=== PATIENT | male | born 1945 | race African-American/Black ===

== ENCOUNTER 2020-09-19 08:28 | Emergency (ER) | payer OTHER ==
[2020-09-19 08:58] VITALS: BP 125/72; PULSE 84; TEMP 98.4; BMI 26.1
== END 2020-09-19 14:15 | disposition home or self-care (01) ==
LOC: JERFT 08:28 → JER 08:28 → JERFT 14:15
DX: H66.91 Otitis media, unspecified, right ear (principal)
CPT/HCPCS: 99282-25

== ENCOUNTER → 2020-09-23 | Emergency (ER) | payer OTHER ==
[2020-09-23 03:47] VITALS: BMI 23.4
[2020-09-23 04:22] LABS: BASO % 1.2 % (0-2.0); HEMATOCRIT 39.7 % (35.4-49); LYMPH % 27.4 % (8-40); MCH 32.2 pg (25.7-33.7); MCHC 32.7 g/dl (32.0-35.9); MEAN CELL VOLUME 98.4 fl (80-96); NEUT % 58.4 % (42.8-82.8); PLATELET COUNT 280 K/MM3 (134-434); RBC 4.03 M/mm3 (4.00-5.60); RDW 15.1 % (11.9-15.9); WHITE BLOOD COUNT 9.4 K/mm3 (4.0-10.0)
[2020-09-23 05:03] LABS: CALCIUM 9.1 mg/dL (8.5-10.1); POTASSIUM 5.1 mmol/L (3.5-5.1)
[2020-09-23 05:04] LABS: ALBUMIN 3.4 g/dl (3.4-5.0); BLOOD UREA NITROGEN 29.6 mg/dL (7-18)
[2020-09-23 05:08] LABS: CREATININE 1.7 mg/dL (0.55-1.3)
[2020-09-23 05:09] LABS: BILIRUBIN,TOTAL 0.6 mg/dL (0.2-1); TOT PROT 8.6 g/dl (6.4-8.2)
[2020-09-23 06:18] VITALS: BP 145/94; PULSE 93; TEMP 97.8
== END | disposition home or self-care (01) ==
LOC: JER 03:37
DX: R56.9 Unspecified convulsions (principal)
CPT/HCPCS: 36415; 70450-TC; 72125-TC; 80053; 85025; 99284-25

== ENCOUNTER 2021-01-24 10:02 | Inpatient (IN) | payer OTHER ==
[2021-01-24] MEDS ORDERED: ACETAMINOPHEN 1000 MG/100 ML VIAL (NON FORMULARY) IVPB ONE (10:36)
[2021-01-24] MEDS ORDERED: CEFTRIAXONE 1 GM in DEXTROSE 5%-WATER - 100 ML IVPB ONE (10:36)
[2021-01-24] MEDS ORDERED: AZITHROMYCIN IVPB 500 MG in DEXTROSE 5%-WATER - 250 ML IVPB ONE (10:36)
[2021-01-24] MEDS ORDERED: ACETAMINOPHEN INJECTION 100 ML IVPB ONE (11:03)
[2021-01-24] MEDS ORDERED: CEFTRIAXONE 1 GM/50 ML BAG ONE (11:03)
[2021-01-24] MEDS ORDERED: AZITHROMYCIN IVPB 500 MG/250 ML BAG IVPB ONE (11:03)
[2021-01-24] MEDS ORDERED: LACTATED RINGERS SOLUTION 1000 ML INFUS.BAG IV ONE (11:09)
[2021-01-24 11:19] LABS: VENOUS BASE EXCESS -0.4 mmol/L (-2-2); VENOUS PCO2 47.5 mmHg (38-52); VENOUS PH 7.351 (7.310-7.410)
[2021-01-24 11:22] LABS: BASO % 0.3 % (0-2.0); EOS % 0.6 % (0-4.5); HEMATOCRIT 39.9 % (35.4-49); HEMOGLOBIN 13.4 GM/dL (11.7-16.9); LYMPH % 9.2 % (8-40); MCH 31.9 pg (25.7-33.7); MCHC 33.5 g/dl (32.0-35.9); MEAN PLT VOLUME 9.6 fl (7.5-11.1); MONO % 9.4 % (3.8-10.2); NEUT % 80.5 % (42.8-82.8); PLATELET COUNT 162 10^3/uL (134-434); RDW 14.4 % (11.9-15.9); WHITE BLOOD COUNT 12.9 K/mm3 (4.0-10.0)
[2021-01-24 11:28] LABS: INR 2.08 (0.83-1.09); PROTHROMBIN TIME (PATIENT) 25.1 SEC (9.7-13.0)
[2021-01-24 11:42] LABS: CHLORIDE 107 mmol/L (98-107); SODIUM 140 mmol/L (136-145)
[2021-01-24 11:45] LABS: CALCIUM 8.4 mg/dL (8.5-10.1)
[2021-01-24 11:46] LABS: ALBUMIN 3.7 g/dl (3.4-5.0); ANION GAP 8 MMOL/L (8-16); BLOOD UREA NITROGEN 26.3 mg/dL (7-18); CO2 25 mmol/L (21-32); GLUCOSE,RANDOM 96 mg/dL (74-106); MAGNESIUM 1.7 mg/dL (1.8-2.4)
[2021-01-24 11:49] LABS: CREATININE 2.1 mg/dL (0.55-1.3); SGOT/AST 18 U/L (15-37); SGPT/ALT 22 U/L (13-61)
[2021-01-24 11:50] LABS: BILIRUBIN,TOTAL 0.8 mg/dL (0.2-1); TOT PROT 8.6 g/dl (6.4-8.2)
[2021-01-24 11:51] LABS: ALK PHOS 94 U/L (45-117)
[2021-01-24 11:54] LABS: N-TERMINAL BNP 4908.1 pg/ml (5-450)
[2021-01-24 15:15] LABS: CHOLESTEROL 101 mg/dL (50-200); TRIGLYCERIDES 48 mg/dL (0-150)
[2021-01-24 15:16] LABS: LDL CHOLESTEROL (ONLY SJRH) 48 mg/dL (5-100)
[2021-01-24 15:18] LABS: HDL CHOLESTEROL 46 mg/dL (40-60)
[2021-01-24] MEDS ORDERED: METOPROLOL TARTRATE 25 MG TABLET (FP) PO SCH (15:45)
[2021-01-24] MEDS ORDERED: SODIUM CHLORIDE 1,000 ML IV SCH (16:00)
[2021-01-24] MEDS ORDERED: PNEUMOC 13-VAL CONJ-DIP CRM/PF 0.5 ML DISP.SYRIN IM ONE (18:51)
[2021-01-24] MEDS: hydrALAZINE HCL 25 MG TABLET (FP) PO SCH (19:02)
[2021-01-24] MEDS: APIXABAN 5 MG TABLET PO SCH (22:13)
[2021-01-24] MEDS: ATORVASTATIN CA 40 MG TABLET (FP) PO SCH (22:13)
[2021-01-25] MEDS: hydrALAZINE HCL 25 MG TABLET (FP) PO SCH ×4 (01:09→21:47)
[2021-01-25] MEDS ORDERED: ACETAMINOPHEN 325 MG TABLET (FP) PO PRN (07:59)
[2021-01-25 08:09] LABS: BASO % 0.2 % (0-2.0); EOS % 1.4 % (0-4.5); LYMPH % 15.3 % (8-40); MCH 32.1 pg (25.7-33.7); MCHC 34.2 g/dl (32.0-35.9); MEAN CELL VOLUME 93.9 fl (80-96); MONO % 10.9 % (3.8-10.2); NEUT % 72.2 % (42.8-82.8); PLATELET COUNT 146 10^3/uL (134-434); RBC 4.05 M/mm3 (4.00-5.60); RDW 14.4 % (11.9-15.9); WHITE BLOOD COUNT 9.3 K/mm3 (4.0-10.0)
[2021-01-25 08:22] LABS: CALCIUM 7.9 mg/dL (8.5-10.1)
[2021-01-25 08:23] LABS: ALBUMIN 3.3 g/dl (3.4-5.0); BLOOD UREA NITROGEN 26.2 mg/dL (7-18); MAGNESIUM 1.6 mg/dL (1.8-2.4)
[2021-01-25 08:26] LABS: CREATININE 1.7 mg/dL (0.55-1.3)
[2021-01-25 08:27] LABS: BILIRUBIN,TOTAL 1.1 mg/dL (0.2-1)
[2021-01-25 08:28] LABS: TOT PROT 7.6 g/dl (6.4-8.2)
[2021-01-25] MEDS ORDERED: DEXTROSE 5%-WATER - 50 ML IVPB ONE (09:39)
[2021-01-25] MEDS ORDERED: cefTRIAXone SODIUM 1 GM VIAL ONE (09:39)
[2021-01-25] MEDS ORDERED: LISINOPRIL 10 MG TABLET PO SCH (10:00)
[2021-01-25] MEDS: THIAMINE HCL 100 MG TABLET (FP) PO SCH (10:07)
[2021-01-25] MEDS: MAGNESIUM OXIDE 400 MG TABLET (FP) PO SCH (10:07)
[2021-01-25] MEDS: PANTOPRAZOLE 40 MG TABLET PO SCH (10:07)
[2021-01-25] MEDS: AZITHROMYCIN IVPB 500 MG/250 ML BAG IVPB SCH (10:07)
[2021-01-25] MEDS: metoPROLOL SUCCINATE 25 MG TAB.SR.24H (FP) PO SCH ×2 (10:07→21:47)
[2021-01-25] MEDS: APIXABAN 5 MG TABLET PO SCH ×2 (10:07→21:47)
[2021-01-25] MEDS: CEFTRIAXONE 1 GM in DEXTROSE 5%-WATER - 50 ML IVPB SCH (11:31)
[2021-01-25] MEDS ORDERED: MAGNESIUM SULF 50% (8.12 MEQ/2 ML-1 GM VIAL) IVPB ONE (11:44)
[2021-01-25] MEDS: ALBUTEROL SO4 2.5/IPRATROPIUM 0.5 INH SOL 3 ML VIAL.NEB. NEB SCH (20:40)
[2021-01-25] MEDS: ATORVASTATIN CA 40 MG TABLET (FP) PO SCH (21:47)
[2021-01-26] MEDS: hydrALAZINE HCL 25 MG TABLET (FP) PO SCH ×3 (06:22→22:15)
[2021-01-26] MEDS: ALBUTEROL SO4 2.5/IPRATROPIUM 0.5 INH SOL 3 ML VIAL.NEB. NEB SCH ×4 (07:50→20:21)
[2021-01-26 07:57] LABS: BASO % 0.3 % (0-2.0); EOS % 4.6 % (0-4.5); HEMATOCRIT 36.8 % (35.4-49); HEMOGLOBIN 12.5 GM/dL (11.7-16.9); LYMPH % 19.8 % (8-40); MCH 31.8 pg (25.7-33.7); MCHC 33.8 g/dl (32.0-35.9); MEAN PLT VOLUME 9.7 fl (7.5-11.1); MONO % 10.8 % (3.8-10.2); NEUT % 64.5 % (42.8-82.8); PLATELET COUNT 142 10^3/uL (134-434); RBC 3.92 M/mm3 (4.00-5.60); RDW 14.5 % (11.9-15.9); WHITE BLOOD COUNT 9.5 K/mm3 (4.0-10.0)
[2021-01-26 08:18] LABS: CALCIUM 7.7 mg/dL (8.5-10.1)
[2021-01-26 08:19] LABS: BLOOD UREA NITROGEN 24.6 mg/dL (7-18)
[2021-01-26 08:22] LABS: CREATININE 1.7 mg/dL (0.55-1.3)
[2021-01-26 08:24] LABS: TOT PROT 7.3 g/dl (6.4-8.2)
[2021-01-26 08:25] LABS: BILIRUBIN,TOTAL 1.1 mg/dL (0.2-1)
[2021-01-26] MEDS ORDERED: FUROSEMIDE 40 MG/4 ML INJECTABLE VIAL IVPUSH ONE (08:40)
[2021-01-26] MEDS ORDERED: DEXTROSE 5%-WATER - 50 ML IVPB ONE (09:20)
[2021-01-26] MEDS ORDERED: cefTRIAXone SODIUM 1 GM VIAL ONE (09:20)
[2021-01-26] MEDS: APIXABAN 5 MG TABLET PO SCH ×2 (09:45→22:15)
[2021-01-26] MEDS: MAGNESIUM OXIDE 400 MG TABLET (FP) PO SCH (09:45)
[2021-01-26] MEDS: PANTOPRAZOLE 40 MG TABLET PO SCH (09:46)
[2021-01-26] MEDS: metoPROLOL SUCCINATE 25 MG TAB.SR.24H (FP) PO SCH ×2 (09:46→22:15)
[2021-01-26] MEDS: AZITHROMYCIN IVPB 500 MG/250 ML BAG IVPB SCH (09:46)
[2021-01-26] MEDS: CEFTRIAXONE 1 GM in DEXTROSE 5%-WATER - 50 ML IVPB SCH (09:46)
[2021-01-26] MEDS: THIAMINE HCL 100 MG TABLET (FP) PO SCH (09:46)
[2021-01-26] MEDS: ATORVASTATIN CA 40 MG TABLET (FP) PO SCH (22:15)
[2021-01-27] MEDS: FUROSEMIDE 40 MG/4 ML INJECTABLE VIAL IVPUSH SCH ×2 (06:15→09:35)
[2021-01-27] MEDS: hydrALAZINE HCL 25 MG TABLET (FP) PO SCH ×3 (06:15→21:23)
[2021-01-27 07:21] LABS: BASO % 0.2 % (0-2.0); EOS % 6.7 % (0-4.5); HEMATOCRIT 35.2 % (35.4-49); HEMOGLOBIN 11.9 GM/dL (11.7-16.9); LYMPH % 21.6 % (8-40); MCH 31.5 pg (25.7-33.7); MCHC 33.8 g/dl (32.0-35.9); MEAN CELL VOLUME 93.3 fl (80-96); MEAN PLT VOLUME 9.7 fl (7.5-11.1); MONO % 12.7 % (3.8-10.2); NEUT % 58.8 % (42.8-82.8); PLATELET COUNT 163 10^3/uL (134-434); RBC 3.77 M/mm3 (4.00-5.60); RDW 14.8 % (11.9-15.9); WHITE BLOOD COUNT 9.4 K/mm3 (4.0-10.0)
[2021-01-27 07:44] LABS: CALCIUM 7.8 mg/dL (8.5-10.1)
[2021-01-27 07:48] LABS: CREATININE 1.9 mg/dL (0.55-1.3)
[2021-01-27 07:51] LABS: BILIRUBIN,TOTAL 0.4 mg/dL (0.2-1); TOT PROT 7.3 g/dl (6.4-8.2)
[2021-01-27] MEDS: ALBUTEROL SO4 2.5/IPRATROPIUM 0.5 INH SOL 3 ML VIAL.NEB. NEB SCH ×4 (08:00→20:12)
[2021-01-27] MEDS ORDERED: cefTRIAXone SODIUM 1 GM VIAL ONE (09:29)
[2021-01-27] MEDS ORDERED: DEXTROSE 5%-WATER - 50 ML IVPB ONE (09:29)
[2021-01-27] MEDS: metoPROLOL SUCCINATE 25 MG TAB.SR.24H (FP) PO SCH ×2 (09:35→21:23)
[2021-01-27] MEDS: PANTOPRAZOLE 40 MG TABLET PO SCH (09:35)
[2021-01-27] MEDS: APIXABAN 5 MG TABLET PO SCH ×2 (09:35→21:24)
[2021-01-27] MEDS: CEFTRIAXONE 1 GM in DEXTROSE 5%-WATER - 50 ML IVPB SCH (09:35)
[2021-01-27] MEDS: THIAMINE HCL 100 MG TABLET (FP) PO SCH (09:35)
[2021-01-27] MEDS: MAGNESIUM OXIDE 400 MG TABLET (FP) PO SCH ×3 (09:36→21:23)
[2021-01-27] MEDS: AZITHROMYCIN IVPB 500 MG/250 ML BAG IVPB SCH (09:36)
[2021-01-27 10:21] LABS: ANISOCYTOSIS 0; HELMET CELLS 0; HOWELL-JOLLY BODIES 0; MACROCYTOSIS 0; OVALOCYTE 0; PLATELET ESTIMATE NORMAL; ROULEAU 0; SICKELED CELLS 0; TARGET CELLS 0; TEAR DROP CELLS 0; TOXIC GRANULATION 0
[2021-01-27 10:26] LABS: MAGNESIUM 2.2 mg/dL (1.8-2.4)
[2021-01-27] MEDS: ATORVASTATIN CA 40 MG TABLET (FP) PO SCH (21:24)
[2021-01-28] MEDS: hydrALAZINE HCL 25 MG TABLET (FP) PO SCH ×3 (06:32→21:22)
[2021-01-28] MEDS: ALBUTEROL SO4 2.5/IPRATROPIUM 0.5 INH SOL 3 ML VIAL.NEB. NEB SCH ×4 (07:38→20:18)
[2021-01-28 08:26] LABS: BASO % 0.4 % (0-2.0); EOS % 7.6 % (0-4.5); HEMATOCRIT 36.9 % (35.4-49); HEMOGLOBIN 12.6 GM/dL (11.7-16.9); LYMPH % 25.7 % (8-40); MCH 31.9 pg (25.7-33.7); MCHC 34.1 g/dl (32.0-35.9); MEAN CELL VOLUME 93.7 fl (80-96); MEAN PLT VOLUME 9.7 fl (7.5-11.1); MONO % 15.2 % (3.8-10.2); NEUT % 51.1 % (42.8-82.8); PLATELET COUNT 193 10^3/uL (134-434); RBC 3.94 M/mm3 (4.00-5.60); RDW 14.6 % (11.9-15.9); WHITE BLOOD COUNT 10.1 K/mm3 (4.0-10.0)
[2021-01-28 09:02] LABS: ALBUMIN 3.3 g/dl (3.4-5.0); CALCIUM 7.9 mg/dL (8.5-10.1)
[2021-01-28 09:03] LABS: BLOOD UREA NITROGEN 29.5 mg/dL (7-18); MAGNESIUM 2.1 mg/dL (1.8-2.4)
[2021-01-28 09:05] LABS: CREATININE 1.8 mg/dL (0.55-1.3)
[2021-01-28 09:07] LABS: BILIRUBIN,TOTAL 0.4 mg/dL (0.2-1); TOT PROT 7.9 g/dl (6.4-8.2)
[2021-01-28 09:16] LABS: ANISOCYTOSIS 1+; MACROCYTOSIS 1+; PLATELET ESTIMATE NORMAL
[2021-01-28] MEDS ORDERED: DEXTROSE 5%-WATER - 50 ML IVPB ONE (09:43)
[2021-01-28] MEDS ORDERED: cefTRIAXone SODIUM 1 GM VIAL ONE (09:43)
[2021-01-28] MEDS: metoPROLOL SUCCINATE 25 MG TAB.SR.24H (FP) PO SCH ×2 (10:02→21:22)
[2021-01-28] MEDS: AZITHROMYCIN IVPB 500 MG/250 ML BAG IVPB SCH (10:03)
[2021-01-28] MEDS: MAGNESIUM OXIDE 400 MG TABLET (FP) PO SCH ×2 (10:03→21:22)
[2021-01-28] MEDS: THIAMINE HCL 100 MG TABLET (FP) PO SCH (10:03)
[2021-01-28] MEDS: PANTOPRAZOLE 40 MG TABLET PO SCH (10:03)
[2021-01-28] MEDS: APIXABAN 5 MG TABLET PO SCH ×2 (10:03→21:22)
[2021-01-28] MEDS: FUROSEMIDE 40 MG/4 ML INJECTABLE VIAL IVPUSH SCH (10:03)
[2021-01-28] MEDS: CEFTRIAXONE 1 GM in DEXTROSE 5%-WATER - 50 ML IVPB SCH (12:26)
[2021-01-28] MEDS ORDERED: SENNOSIDES 8.6MG TABLET (FP) PO ONE (13:45)
[2021-01-28] MEDS ORDERED: POLYETHYLENE GLYCOL (HEALTHYLAX) 3350 17 GM PACKET PO PRN (14:10)
[2021-01-28] MEDS: DOCUSATE SODIUM 100 MG CAPSULE (FP) PO SCH ×3 (14:38→21:22)
[2021-01-28] MEDS: ATORVASTATIN CA 40 MG TABLET (FP) PO SCH (21:22)
[2021-01-29] MEDS: hydrALAZINE HCL 25 MG TABLET (FP) PO SCH ×3 (05:22→21:58)
[2021-01-29] MEDS: DOCUSATE SODIUM 100 MG CAPSULE (FP) PO SCH ×3 (05:22→21:58)
[2021-01-29] MEDS: ALBUTEROL SO4 2.5/IPRATROPIUM 0.5 INH SOL 3 ML VIAL.NEB. NEB SCH ×4 (07:25→20:17)
[2021-01-29 07:42] LABS: BASO % 0.3 % (0-2.0); EOS % 3.2 % (0-4.5); HEMATOCRIT 37.9 % (35.4-49); HEMOGLOBIN 12.6 GM/dL (11.7-16.9); LYMPH % 10.9 % (8-40); MCHC 33.2 g/dl (32.0-35.9); MEAN CELL VOLUME 93.4 fl (80-96); MEAN PLT VOLUME 9.7 fl (7.5-11.1); MONO % 7.5 % (3.8-10.2); NEUT % 78.1 % (42.8-82.8); PLATELET COUNT 211 10^3/uL (134-434); RBC 4.06 M/mm3 (4.00-5.60); RDW 14.6 % (11.9-15.9); WHITE BLOOD COUNT 16.3 K/mm3 (4.0-10.0)
[2021-01-29 08:08] LABS: ALBUMIN 3.2 g/dl (3.4-5.0); BLOOD UREA NITROGEN 29.2 mg/dL (7-18)
[2021-01-29 08:12] LABS: CREATININE 1.8 mg/dL (0.55-1.3)
[2021-01-29 08:13] LABS: BILIRUBIN,TOTAL 0.5 mg/dL (0.2-1); TOT PROT 7.9 g/dl (6.4-8.2)
[2021-01-29] MEDS ORDERED: DEXTROSE 5%-WATER - 50 ML IVPB ONE (09:41)
[2021-01-29] MEDS ORDERED: cefTRIAXone SODIUM 1 GM VIAL ONE (09:41)
[2021-01-29] MEDS: metoPROLOL SUCCINATE 25 MG TAB.SR.24H (FP) PO SCH ×2 (10:41→21:58)
[2021-01-29] MEDS: APIXABAN 5 MG TABLET PO SCH ×2 (10:41→21:58)
[2021-01-29] MEDS: PANTOPRAZOLE 40 MG TABLET PO SCH (10:41)
[2021-01-29] MEDS: THIAMINE HCL 100 MG TABLET (FP) PO SCH (10:41)
[2021-01-29] MEDS: MAGNESIUM OXIDE 400 MG TABLET (FP) PO SCH ×2 (10:41→21:58)
[2021-01-29] MEDS: AZITHROMYCIN IVPB 500 MG/250 ML BAG IVPB SCH (10:42)
[2021-01-29] MEDS: FUROSEMIDE 40 MG/4 ML INJECTABLE VIAL IVPUSH SCH (10:42)
[2021-01-29] MEDS: CEFTRIAXONE 1 GM in DEXTROSE 5%-WATER - 50 ML IVPB SCH (13:54)
[2021-01-29] MEDS: ATORVASTATIN CA 40 MG TABLET (FP) PO SCH (21:58)
[2021-01-30] MEDS: DOCUSATE SODIUM 100 MG CAPSULE (FP) PO SCH ×3 (05:11→22:03)
[2021-01-30] MEDS: hydrALAZINE HCL 25 MG TABLET (FP) PO SCH ×3 (05:11→22:03)
[2021-01-30] MEDS: ALBUTEROL SO4 2.5/IPRATROPIUM 0.5 INH SOL 3 ML VIAL.NEB. NEB SCH ×3 (07:50→16:25)
[2021-01-30] MEDS: MAGNESIUM OXIDE 400 MG TABLET (FP) PO SCH ×2 (10:10→22:03)
[2021-01-30] MEDS: APIXABAN 5 MG TABLET PO SCH ×2 (10:10→22:03)
[2021-01-30] MEDS: PANTOPRAZOLE 40 MG TABLET PO SCH (10:10)
[2021-01-30] MEDS: THIAMINE HCL 100 MG TABLET (FP) PO SCH (10:10)
[2021-01-30] MEDS: FUROSEMIDE 40 MG/4 ML INJECTABLE VIAL IVPUSH SCH (10:10)
[2021-01-30] MEDS: metoPROLOL SUCCINATE 25 MG TAB.SR.24H (FP) PO SCH (11:23)
[2021-01-30] MEDS ORDERED: metoPROLOL SUCCINATE 25 MG TAB.SR.24H (FP) PO SCH (11:51)
[2021-01-30] MEDS ORDERED: DEXTROSE 5%-WATER - 50 ML IVPB ONE (15:20)
[2021-01-30] MEDS ORDERED: cefTRIAXone SODIUM 1 GM VIAL ONE (15:20)
[2021-01-30] MEDS: CEFTRIAXONE 1 GM in DEXTROSE 5%-WATER - 50 ML IVPB SCH (15:47)
[2021-01-30] MEDS: ATORVASTATIN CA 40 MG TABLET (FP) PO SCH (22:03)
[2021-01-31] MEDS: DOCUSATE SODIUM 100 MG CAPSULE (FP) PO SCH ×3 (06:30→21:08)
[2021-01-31] MEDS: hydrALAZINE HCL 25 MG TABLET (FP) PO SCH ×3 (06:30→21:08)
[2021-01-31 07:43] LABS: BASO % 0.5 % (0-2.0); EOS % 3.2 % (0-4.5); HEMATOCRIT 37.4 % (35.4-49); HEMOGLOBIN 12.6 GM/dL (11.7-16.9); LYMPH % 19.6 % (8-40); MCH 31.6 pg (25.7-33.7); MCHC 33.6 g/dl (32.0-35.9); MEAN CELL VOLUME 94.1 fl (80-96); MEAN PLT VOLUME 9.4 fl (7.5-11.1); MONO % 9.7 % (3.8-10.2); PLATELET COUNT 241 10^3/uL (134-434); RBC 3.97 M/mm3 (4.00-5.60); RDW 14.5 % (11.9-15.9); WHITE BLOOD COUNT 11.6 K/mm3 (4.0-10.0)
[2021-01-31 07:45] LABS: ALBUMIN 3.2 g/dl (3.4-5.0); BLOOD UREA NITROGEN 33.2 mg/dL (7-18); CALCIUM 8.7 mg/dL (8.5-10.1)
[2021-01-31 07:51] LABS: CREATININE 1.9 mg/dL (0.55-1.3)
[2021-01-31 07:53] LABS: BILIRUBIN,TOTAL 0.6 mg/dL (0.2-1); TOT PROT 8.1 g/dl (6.4-8.2)
[2021-01-31] MEDS ORDERED: cefTRIAXone SODIUM 1 GM VIAL ONE (10:53)
[2021-01-31] MEDS ORDERED: DEXTROSE 5%-WATER - 50 ML IVPB ONE (10:53)
[2021-01-31] MEDS: CEFTRIAXONE 1 GM in DEXTROSE 5%-WATER - 50 ML IVPB SCH (10:55)
[2021-01-31] MEDS: PANTOPRAZOLE 40 MG TABLET PO SCH (10:56)
[2021-01-31] MEDS: APIXABAN 5 MG TABLET PO SCH ×2 (10:56→21:08)
[2021-01-31] MEDS: THIAMINE HCL 100 MG TABLET (FP) PO SCH (10:56)
[2021-01-31] MEDS: FUROSEMIDE 40 MG/4 ML INJECTABLE VIAL IVPUSH SCH (10:59)
[2021-01-31 14:51] VITALS: BMI 29.0
[2021-01-31] MEDS: ATORVASTATIN CA 40 MG TABLET (FP) PO SCH (21:09)
[2021-02-01] MEDS: DOCUSATE SODIUM 100 MG CAPSULE (FP) PO SCH ×2 (05:37→14:58)
[2021-02-01] MEDS: hydrALAZINE HCL 25 MG TABLET (FP) PO SCH ×2 (05:37→14:58)
[2021-02-01 06:14] LABS: EPI CELLS 5 /uL (0-25.1); HYALINE CASTS 0 /uL (0-3.1); PH,URINE 6.5 (5.0-8.0); URINE APPEARANCE CLEAR; URINE BACTERIA 3 /uL (0-1359); URINE BILIRUBIN NEGATIVE (NEGATIVE); URINE COLOR YELLOW; URINE GLUCOSE (UA) NEGATIVE (NEGATIVE); URINE KETONE NEGATIVE (NEGATIVE); URINE LEUK ESTERASE TRACE (NEGATIVE); URINE NITRITE NEGATIVE (NEGATIVE); URINE PROTEIN NEGATIVE (NEGATIVE); URINE RBC 5 /uL (0-23.9); URINE UROBILINOGEN 0.2 mg/dL (0.2-1.0); URINE WBC 15 /uL (0-25.8)
[2021-02-01] MEDS ORDERED: cefTRIAXone SODIUM 1 GM VIAL ONE (10:27)
[2021-02-01] MEDS ORDERED: DEXTROSE 5%-WATER - 50 ML IVPB ONE (10:28)
[2021-02-01] MEDS: APIXABAN 5 MG TABLET PO SCH (10:37)
[2021-02-01] MEDS: PANTOPRAZOLE 40 MG TABLET PO SCH (10:37)
[2021-02-01] MEDS: THIAMINE HCL 100 MG TABLET (FP) PO SCH (10:37)
[2021-02-01] MEDS: FUROSEMIDE 40 MG/4 ML INJECTABLE VIAL IVPUSH SCH (10:37)
[2021-02-01] MEDS: CEFTRIAXONE 1 GM in DEXTROSE 5%-WATER - 50 ML IVPB SCH (10:37)
[2021-02-01 14:58] VITALS: BP 125/85; PULSE 79; TEMP 98.1
== END 2021-02-01 16:47 | disposition home or self-care (01) | DRG 193 ==
LOC: JER 10:02 → JERBED 12:22 → J4W 18:42
PROVIDERS: ADMIT Internal Medicine; ATTEND Internal Medicine
DX: J18.9 Pneumonia, unspecified organism (principal); I50.33 Acute on chronic diastolic (congestive) heart failure; J98.11 Atelectasis; I13.0 Hypertensive heart and chronic kidney disease with heart failure and stage 1 through stage 4 chronic kidney disease, or unspecified chronic kidney disease; I47.2 Ventricular tachycardia; N17.9 Acute kidney failure, unspecified; I48.91 Unspecified atrial fibrillation; I25.10 Atherosclerotic heart disease of native coronary artery without angina pectoris; R50.9 Fever, unspecified; I12.9 Hypertensive chronic kidney disease with stage 1 through stage 4 chronic kidney disease, or unspecified chronic kidney disease; N18.30 Chronic kidney disease, stage 3 unspecified; G40.909 Epilepsy, unspecified, not intractable, without status epilepticus; I25.2 Old myocardial infarction; K59.09 Other constipation
CPT/HCPCS: 36415; 71045-TC-FY; 71046-TC-FY; 71250-TC; 80048; 80053; 80061; 81003; 82550; 82553; 82570; 82803; 83735; 83880; 84156; 84443; 84484; 85025; 85610; 85730; 86480; 87040; 87070; 87116; 87205; 87206; 87899; 90670; 93005; 93010; 93306-TC; 94640; 94761; 99285-25; C9803; J0131; U0003; U0005

== ENCOUNTER 2021-03-23 02:09 | Inpatient (IN) | payer OTHER ==
[2021-03-23 03:00] LABS: BASO % 0.9 % (0-2.0); EOS % 8.3 % (0-4.5); HEMATOCRIT 39.8 % (35.4-49); HEMOGLOBIN 13.1 GM/dL (11.7-16.9); LYMPH % 17.7 % (8-40); MCH 31.5 pg (25.7-33.7); MCHC 32.9 g/dl (32.0-35.9); MEAN CELL VOLUME 95.9 fl (80-96); MEAN PLT VOLUME 9.6 fl (7.5-11.1); MONO % 5.9 % (3.8-10.2); NEUT % 67.2 % (42.8-82.8); PLATELET COUNT 198 10^3/uL (134-434); RBC 4.16 M/mm3 (4.00-5.60); RDW 15.9 % (11.9-15.9); WHITE BLOOD COUNT 13.7 K/mm3 (4.0-10.0)
[2021-03-23 03:16] LABS: INR 1.43 (0.83-1.09); PROTHROMBIN TIME (PATIENT) 17.6 SEC (9.7-13.0)
[2021-03-23 03:17] LABS: CHLORIDE 110 mmol/L (98-107); SODIUM 142 mmol/L (136-145)
[2021-03-23 03:19] LABS: ALBUMIN 3.2 g/dl (3.4-5.0); ANION GAP 9 MMOL/L (8-16); CALCIUM 8.4 mg/dL (8.5-10.1); CO2 23 mmol/L (21-32); GLUCOSE,RANDOM 108 mg/dL (74-106)
[2021-03-23 03:22] LABS: CREATININE 2.2 mg/dL (0.55-1.3); SGOT/AST 14 U/L (15-37); SGPT/ALT 17 U/L (13-61)
[2021-03-23 03:24] LABS: BILIRUBIN,TOTAL 0.4 mg/dL (0.2-1)
[2021-03-23 03:25] LABS: ALK PHOS 88 U/L (45-117)
[2021-03-23 03:36] LABS: EPI CELLS 6 /uL (0-25.1); HYALINE CASTS 0 /uL (0-3.1); PH,URINE 6.5 (5.0-8.0); URINE APPEARANCE CLEAR; URINE BACTERIA 4 /uL (0-1359); URINE BILIRUBIN NEGATIVE (NEGATIVE); URINE COLOR YELLOW; URINE GLUCOSE (UA) NEGATIVE (NEGATIVE); URINE KETONE NEGATIVE (NEGATIVE); URINE LEUK ESTERASE NEGATIVE (NEGATIVE); URINE NITRITE NEGATIVE (NEGATIVE); URINE PROTEIN 1+ (NEGATIVE); URINE RBC 2 /uL (0-23.9); URINE UROBILINOGEN 0.2 mg/dL (0.2-1.0); URINE WBC 7 /uL (0-25.8)
[2021-03-23] MEDS ORDERED: POLYETHYLENE GLYCOL (HEALTHYLAX) 3350 17 GM PACKET PO PRN (11:50)
[2021-03-23] MEDS: ALBUTEROL SO4 2.5/IPRATROPIUM 0.5 INH SOL 3 ML VIAL.NEB. NEB SCH ×2 (12:03→16:02)
[2021-03-23 12:25] VITALS: BMI 28.8
[2021-03-23] MEDS: hydrALAZINE HCL 25 MG TABLET (FP) PO SCH ×2 (13:38→21:16)
[2021-03-23] MEDS: levETIRAcetam 500 MG TABLET (FP) PO SCH ×2 (13:38→21:16)
[2021-03-23] MEDS: ATORVASTATIN CA 40 MG TABLET (FP) PO SCH (21:16)
[2021-03-23] MEDS: APIXABAN 5 MG TABLET PO SCH (21:16)
[2021-03-24] MEDS: hydrALAZINE HCL 25 MG TABLET (FP) PO SCH ×3 (05:13→22:40)
[2021-03-24] MEDS: ALBUTEROL SO4 2.5/IPRATROPIUM 0.5 INH SOL 3 ML VIAL.NEB. NEB SCH ×4 (07:40→20:12)
[2021-03-24] MEDS: levETIRAcetam 500 MG TABLET (FP) PO SCH ×2 (09:32→22:40)
[2021-03-24] MEDS: DOCUSATE SODIUM 100 MG CAPSULE (FP) PO PRN (09:32)
[2021-03-24] MEDS: THIAMINE HCL 100 MG TABLET (FP) PO SCH (09:33)
[2021-03-24] MEDS: MAGNESIUM OXIDE 400 MG TABLET (FP) PO SCH (09:33)
[2021-03-24] MEDS: PANTOPRAZOLE 40 MG TABLET PO SCH (09:33)
[2021-03-24] MEDS: APIXABAN 5 MG TABLET PO SCH ×2 (09:33→22:40)
[2021-03-24] MEDS: FUROSEMIDE 40 MG TABLET (FP) PO SCH (09:39)
[2021-03-24 10:17] LABS: GLUCOSE,RANDOM 92 mg/dL (74-106)
[2021-03-24 10:18] LABS: ALBUMIN 3.2 g/dl (3.4-5.0); ALK PHOS 89 U/L (45-117); BILIRUBIN,TOTAL 0.6 mg/dL (0.2-1); BLOOD UREA NITROGEN 36.8 mg/dL (7-18); CALCIUM 8.8 mg/dL (8.5-10.1); CHLORIDE 111 mmol/L (98-107); CO2 24 mmol/L (21-32); CREATININE 2.1 mg/dL (0.55-1.3); SGOT/AST 14 U/L (15-37); SGPT/ALT 17 U/L (13-61); SODIUM 142 mmol/L (136-145)
[2021-03-24 10:41] LABS: BASO % 0.2 % (0-2.0); EOS % 5.5 % (0-4.5); HEMATOCRIT 40.2 % (35.4-49); HEMOGLOBIN 13.4 GM/dL (11.7-16.9); MCH 32.2 pg (25.7-33.7); MCHC 33.3 g/dl (32.0-35.9); MEAN CELL VOLUME 96.8 fl (80-96); MEAN PLT VOLUME 9.9 fl (7.5-11.1); NEUT % 73.3 % (42.8-82.8); PLATELET COUNT 213 10^3/uL (134-434); RBC 4.15 M/mm3 (4.00-5.60); WHITE BLOOD COUNT 14.2 K/mm3 (4.0-10.0)
[2021-03-24] MEDS: AZITHROMYCIN 250 MG TABLET PO SCH (15:37)
[2021-03-24] MEDS: ATORVASTATIN CA 40 MG TABLET (FP) PO SCH (22:40)
[2021-03-25] MEDS: hydrALAZINE HCL 25 MG TABLET (FP) PO SCH ×3 (05:50→21:12)
[2021-03-25] MEDS: ALBUTEROL SO4 2.5/IPRATROPIUM 0.5 INH SOL 3 ML VIAL.NEB. NEB SCH ×4 (07:58→20:51)
[2021-03-25 08:44] LABS: HEMATOCRIT 42.6 % (35.4-49); HEMOGLOBIN 13.8 GM/dL (11.7-16.9); MCH 31.7 pg (25.7-33.7); MCHC 32.5 g/dl (32.0-35.9); MEAN CELL VOLUME 97.6 fl (80-96); MEAN PLT VOLUME 9.7 fl (7.5-11.1); PLATELET COUNT 166 10^3/uL (134-434); RBC 4.36 M/mm3 (4.00-5.60); RDW 16.1 % (11.9-15.9); WHITE BLOOD COUNT 17.4 K/mm3 (4.0-10.0)
[2021-03-25 09:07] LABS: CALCIUM 8.6 mg/dL (8.5-10.1)
[2021-03-25 09:08] LABS: BLOOD UREA NITROGEN 39.7 mg/dL (7-18)
[2021-03-25 09:11] LABS: CREATININE 2.1 mg/dL (0.55-1.3)
[2021-03-25] MEDS: FUROSEMIDE 40 MG TABLET (FP) PO SCH (10:54)
[2021-03-25] MEDS: levETIRAcetam 500 MG TABLET (FP) PO SCH ×2 (10:55→21:11)
[2021-03-25] MEDS: THIAMINE HCL 100 MG TABLET (FP) PO SCH (10:55)
[2021-03-25] MEDS: AZITHROMYCIN 250 MG TABLET PO SCH (10:55)
[2021-03-25] MEDS: APIXABAN 5 MG TABLET PO SCH ×2 (10:55→21:12)
[2021-03-25] MEDS: PANTOPRAZOLE 40 MG TABLET PO SCH (10:55)
[2021-03-25] MEDS: MAGNESIUM OXIDE 400 MG TABLET (FP) PO SCH (10:55)
[2021-03-25] MEDS: DOCUSATE SODIUM 100 MG CAPSULE (FP) PO PRN (10:55)
[2021-03-25 11:19] LABS: ANISOCYTOSIS 0; MACROCYTOSIS 0; PLATELET ESTIMATE DECREASED
[2021-03-25] MEDS ORDERED: PT OWN MED DRAWER 7, Y5N ONE ×2 (20:49→23:18)
[2021-03-25] MEDS: ATORVASTATIN CA 40 MG TABLET (FP) PO SCH (21:11)
[2021-03-26] MEDS: hydrALAZINE HCL 25 MG TABLET (FP) PO SCH ×2 (05:34→13:14)
[2021-03-26] MEDS: ALBUTEROL SO4 2.5/IPRATROPIUM 0.5 INH SOL 3 ML VIAL.NEB. NEB SCH ×3 (08:21→15:27)
[2021-03-26] MEDS: AZITHROMYCIN 250 MG TABLET PO SCH (09:56)
[2021-03-26] MEDS: PANTOPRAZOLE 40 MG TABLET PO SCH (09:57)
[2021-03-26] MEDS: THIAMINE HCL 100 MG TABLET (FP) PO SCH (09:57)
[2021-03-26] MEDS: APIXABAN 5 MG TABLET PO SCH (09:57)
[2021-03-26] MEDS: levETIRAcetam 500 MG TABLET (FP) PO SCH (09:58)
[2021-03-26] MEDS: FUROSEMIDE 40 MG TABLET (FP) PO SCH (09:58)
[2021-03-26] MEDS: MAGNESIUM OXIDE 400 MG TABLET (FP) PO SCH (09:58)
[2021-03-26 10:28] LABS: BASO % 0.1 % (0-2.0); EOS % 5.7 % (0-4.5); HEMATOCRIT 39.2 % (35.4-49); LYMPH % 14.2 % (8-40); MCH 32.2 pg (25.7-33.7); MCHC 33.1 g/dl (32.0-35.9); MEAN CELL VOLUME 97.3 fl (80-96); MEAN PLT VOLUME 9.7 fl (7.5-11.1); MONO % 4.4 % (3.8-10.2); NEUT % 75.6 % (42.8-82.8); PLATELET COUNT 201 10^3/uL (134-434); RBC 4.03 M/mm3 (4.00-5.60); RDW 16.3 % (11.9-15.9); WHITE BLOOD COUNT 14.3 K/mm3 (4.0-10.0)
[2021-03-26 17:37] VITALS: BP 124/91; PULSE 80; TEMP 98
== END 2021-03-26 17:51 | disposition home or self-care (01) | DRG 101 ==
LOC: JER 02:09 → JERBED 05:55 → J5S 11:28
PROVIDERS: ADMIT Internal Medicine; ATTEND Internal Medicine
PROC: 4A10X4Z Monitoring of Central Nervous Electrical Activity, External Approach (ICD-10-PCS; principal; 2021-03-24)
DX: G40.909 Epilepsy, unspecified, not intractable, without status epilepticus (principal); J98.11 Atelectasis; I25.10 Atherosclerotic heart disease of native coronary artery without angina pectoris; I48.91 Unspecified atrial fibrillation; Z79.01 Long term (current) use of anticoagulants; I12.9 Hypertensive chronic kidney disease with stage 1 through stage 4 chronic kidney disease, or unspecified chronic kidney disease; N18.9 Chronic kidney disease, unspecified
CPT/HCPCS: 36415; 70450-TC; 70551-TC; 71045-TC-FY; 71250-TC; 72125-TC; 80048; 80053; 81003; 82550; 84484; 85025; 85610; 85730; 87086; 93005; 93010; 94640; 95816; 99285-25; C9803; U0003; U0005

== ENCOUNTER 2022-03-05 12:54 | Inpatient (IN) | payer OTHER ==
[2022-03-05] MEDS ORDERED: LORazepam 2 MG/ML SDV VIAL IM ONE (13:12)
[2022-03-05] MEDS ORDERED: levETIRAcetam 500 MG/5 ML INJECTION VIAL IVPB ONE ×2 (13:13→13:23)
[2022-03-05] MEDS ORDERED: LORazepam 2 MG/ML SDV VIAL IVPUSH ONE (13:25)
[2022-03-05 14:04] LABS: BASO % 0.4 % (0-2.0); HEMATOCRIT 41.9 % (35.4-49); HEMOGLOBIN 13.6 GM/dL (11.7-16.9); LYMPH % 18.6 % (8-40); MCH 32.1 pg (25.7-33.7); MCHC 32.4 g/dl (32.0-35.9); MEAN CELL VOLUME 99.1 fl (80-96); MEAN PLT VOLUME 9.1 fl (7.5-11.1); MONO % 6.5 % (3.8-10.2); NEUT % 69.5 % (42.8-82.8); PLATELET COUNT 222 10^3/uL (134-434); RBC 4.23 M/mm3 (4.00-5.60); RDW 14.1 % (11.9-15.9); WHITE BLOOD COUNT 14.5 K/mm3 (4.0-10.0)
[2022-03-05 14:10] LABS: INR 1.15 (0.83-1.09); PROTHROMBIN TIME (PATIENT) 13.3 SEC (9.7-13.0)
[2022-03-05 14:13] LABS: ALBUMIN 3.3 g/dl (3.4-5.0); BLOOD UREA NITROGEN 36.6 mg/dL (7-18); CALCIUM 8.4 mg/dL (8.5-10.1)
[2022-03-05 14:18] LABS: BILIRUBIN,TOTAL 0.8 mg/dL (0.2-1); TOT PROT 7.6 g/dl (6.4-8.2)
[2022-03-05] MEDS ORDERED: SODIUM CHLORIDE 500 ML IV STA (14:33)
[2022-03-05] MEDS ORDERED: ALBUTEROL SO4 2.5/IPRATROPIUM 0.5 INH SOL 3 ML VIAL.NEB. NEB PRN (14:43)
[2022-03-05] MEDS ORDERED: DOCUSATE SODIUM 100 MG CAPSULE (FP) PO PRN (14:43)
[2022-03-05] MEDS ORDERED: POLYETHYLENE GLYCOL (HEALTHYLAX) 3350 17 GM PACKET PO PRN (14:43)
[2022-03-05] MEDS ORDERED: SODIUM CHLORIDE 0.9% 500 ML INFUS.BAG IV ONE (16:21)
[2022-03-05] MEDS ORDERED: CEFTRIAXONE 1 GM/50 ML BAG ONE (17:09)
[2022-03-05] MEDS ORDERED: AZITHROMYCIN IVPB 500 MG/250 ML BAG IVPB ONE (17:09)
[2022-03-05] MEDS: CEFTRIAXONE 1 GM in DEXTROSE 5%-WATER - 50 ML IVPB SCH (17:20)
[2022-03-05] MEDS: AZITHROMYCIN IVPB 500 MG/250 ML BAG IVPB SCH (17:20)
[2022-03-05] MEDS: SODIUM CHLORIDE 0.9% 1000 ML INFUS.BAG IV SCH (19:50)
[2022-03-05] MEDS ORDERED: ALBUTEROL SO4 2.5/IPRATROPIUM 0.5 INH SOL 3 ML VIAL.NEB. NEB ONE (19:50)
[2022-03-05] MEDS: hydrALAZINE HCL 25 MG TABLET (FP) PO SCH (22:01)
[2022-03-05 22:15] LABS: EPI CELLS >36 /uL (0-25.1); HYALINE CASTS 3 /uL (0-3.1); PH,URINE 5.5 (5.0-8.0); URINE APPEARANCE CLEAR; URINE BACTERIA 24 /uL (0-1359); URINE BILIRUBIN NEGATIVE (NEGATIVE); URINE COLOR YELLOW; URINE GLUCOSE (UA) NEGATIVE (NEGATIVE); URINE KETONE NEGATIVE (NEGATIVE); URINE LEUK ESTERASE NEGATIVE (NEGATIVE); URINE NITRITE NEGATIVE (NEGATIVE); URINE PROTEIN 3+ (NEGATIVE); URINE RBC 10 /uL (0-23.9); URINE UROBILINOGEN 0.2 mg/dL (0.2-1.0); URINE WBC 39 /uL (0-25.8)
[2022-03-05] MEDS ORDERED: APIXABAN 5 MG TABLET ONE (23:18)
[2022-03-05] MEDS ORDERED: ATORVASTATIN CA 40 MG TABLET (FP) ONE (23:19)
[2022-03-05] MEDS ORDERED: levETIRAcetam 500 MG TABLET (FP) PO ONE (23:19)
[2022-03-05] MEDS: levETIRAcetam 500 MG TABLET (FP) PO SCH (23:29)
[2022-03-05] MEDS: ATORVASTATIN CA 40 MG TABLET (FP) PO SCH (23:29)
[2022-03-05] MEDS: APIXABAN 5 MG TABLET PO SCH (23:29)
[2022-03-06] MEDS: hydrALAZINE HCL 25 MG TABLET (FP) PO SCH ×3 (05:00→21:16)
[2022-03-06] MEDS ORDERED: AZITHROMYCIN IVPB 500 MG/250 ML BAG IVPB ONE (08:09)
[2022-03-06] MEDS ORDERED: CEFTRIAXONE 1 GM/50 ML BAG ONE (08:09)
[2022-03-06] MEDS ORDERED: PANTOPRAZOLE 40 MG TABLET PO ONE ×2 (08:17→08:18)
[2022-03-06] MEDS ORDERED: FUROSEMIDE 40 MG TABLET (FP) ONE (08:17)
[2022-03-06] MEDS ORDERED: APIXABAN 5 MG TABLET ONE (08:17)
[2022-03-06] MEDS ORDERED: THIAMINE HCL 100 MG TABLET (FP) ONE (08:17)
[2022-03-06] MEDS ORDERED: levETIRAcetam 500 MG TABLET (FP) PO ONE (08:18)
[2022-03-06] MEDS ORDERED: MAGNESIUM OXIDE 400 MG TABLET (FP) ONE (08:18)
[2022-03-06] MEDS: CEFTRIAXONE 1 GM in DEXTROSE 5%-WATER - 50 ML IVPB SCH (09:00)
[2022-03-06] MEDS: SODIUM CHLORIDE 0.9% 1000 ML INFUS.BAG IV SCH (09:23)
[2022-03-06] MEDS: levETIRAcetam 500 MG TABLET (FP) PO SCH ×2 (09:23→21:16)
[2022-03-06] MEDS: APIXABAN 5 MG TABLET PO SCH ×2 (09:23→21:18)
[2022-03-06] MEDS: MAGNESIUM OXIDE 400 MG TABLET (FP) PO SCH (09:24)
[2022-03-06] MEDS: PANTOPRAZOLE 40 MG TABLET PO SCH (09:24)
[2022-03-06] MEDS: THIAMINE HCL 100 MG TABLET (FP) PO SCH (09:24)
[2022-03-06] MEDS: FUROSEMIDE 40 MG TABLET (FP) PO SCH (09:24)
[2022-03-06] MEDS: AZITHROMYCIN IVPB 500 MG/250 ML BAG IVPB SCH (09:28)
[2022-03-06 15:01] VITALS: BMI 27.3
[2022-03-06] MEDS: ATORVASTATIN CA 40 MG TABLET (FP) PO SCH (21:18)
[2022-03-07] MEDS: hydrALAZINE HCL 25 MG TABLET (FP) PO SCH ×3 (05:58→21:45)
[2022-03-07 10:32] LABS: BLOOD UREA NITROGEN 34.5 mg/dL (7-18); CALCIUM 7.7 mg/dL (8.5-10.1)
[2022-03-07 10:33] LABS: ALBUMIN 2.9 g/dl (3.4-5.0)
[2022-03-07 10:37] LABS: BILIRUBIN,TOTAL 0.4 mg/dL (0.2-1); TOT PROT 6.5 g/dl (6.4-8.2)
[2022-03-07] MEDS: levETIRAcetam 500 MG TABLET (FP) PO SCH ×2 (11:08→21:45)
[2022-03-07] MEDS: FUROSEMIDE 40 MG TABLET (FP) PO SCH (11:08)
[2022-03-07] MEDS: APIXABAN 5 MG TABLET PO SCH ×2 (11:08→21:45)
[2022-03-07] MEDS: MAGNESIUM OXIDE 400 MG TABLET (FP) PO SCH (11:09)
[2022-03-07] MEDS: SODIUM CHLORIDE 0.9% 1000 ML INFUS.BAG IV SCH (11:09)
[2022-03-07] MEDS: AZITHROMYCIN IVPB 500 MG/250 ML BAG IVPB SCH (11:10)
[2022-03-07] MEDS: PANTOPRAZOLE 40 MG TABLET PO SCH (11:10)
[2022-03-07] MEDS: THIAMINE HCL 100 MG TABLET (FP) PO SCH (11:10)
[2022-03-07] MEDS: CEFTRIAXONE 1 GM in DEXTROSE 5%-WATER - 50 ML IVPB SCH (11:10)
[2022-03-07] MEDS: ATORVASTATIN CA 40 MG TABLET (FP) PO SCH (21:45)
[2022-03-08] MEDS: hydrALAZINE HCL 25 MG TABLET (FP) PO SCH ×3 (05:58→21:33)
[2022-03-08 09:09] LABS: BASO % 0.4 % (0-2.0); EOS % 4.4 % (0-4.5); HEMATOCRIT 35.2 % (35.4-49); HEMOGLOBIN 11.8 GM/dL (11.7-16.9); MCHC 33.6 g/dl (32.0-35.9); MEAN CELL VOLUME 98.2 fl (80-96); MEAN PLT VOLUME 8.6 fl (7.5-11.1); MONO % 9.5 % (3.8-10.2); NEUT % 72.7 % (42.8-82.8); PLATELET COUNT 186 10^3/uL (134-434); RBC 3.59 M/mm3 (4.00-5.60); RDW 13.7 % (11.9-15.9); WHITE BLOOD COUNT 13.4 K/mm3 (4.0-10.0)
[2022-03-08 09:41] LABS: BLOOD UREA NITROGEN 31.1 mg/dL (7-18)
[2022-03-08 09:43] LABS: BILIRUBIN,TOTAL 0.5 mg/dL (0.2-1); CREATININE 1.8 mg/dL (0.55-1.3)
[2022-03-08 09:45] LABS: TOT PROT 6.7 g/dl (6.4-8.2)
[2022-03-08] MEDS: CEFTRIAXONE 1 GM in DEXTROSE 5%-WATER - 50 ML IVPB SCH (10:30)
[2022-03-08] MEDS: levETIRAcetam 500 MG TABLET (FP) PO SCH ×2 (10:30→21:33)
[2022-03-08] MEDS: PANTOPRAZOLE 40 MG TABLET PO SCH (10:32)
[2022-03-08] MEDS: MAGNESIUM OXIDE 400 MG TABLET (FP) PO SCH (10:32)
[2022-03-08] MEDS: FUROSEMIDE 40 MG TABLET (FP) PO SCH (10:33)
[2022-03-08] MEDS: THIAMINE HCL 100 MG TABLET (FP) PO SCH (10:33)
[2022-03-08] MEDS: APIXABAN 5 MG TABLET PO SCH ×2 (10:34→21:33)
[2022-03-08] MEDS: AZITHROMYCIN IVPB 500 MG/250 ML BAG IVPB SCH (10:34)
[2022-03-08] MEDS: SODIUM CHLORIDE 0.9% 1000 ML INFUS.BAG IV SCH (11:35)
[2022-03-08] MEDS: ATORVASTATIN CA 40 MG TABLET (FP) PO SCH (21:33)
[2022-03-09] MEDS: hydrALAZINE HCL 25 MG TABLET (FP) PO SCH ×3 (06:05→22:30)
[2022-03-09 09:16] LABS: BASO % 0.5 % (0-2.0); EOS % 3.3 % (0-4.5); HEMATOCRIT 33.6 % (35.4-49); HEMOGLOBIN 11.1 GM/dL (11.7-16.9); LYMPH % 12.9 % (8-40); MCH 32.1 pg (25.7-33.7); MEAN CELL VOLUME 97.2 fl (80-96); MONO % 9.5 % (3.8-10.2); NEUT % 73.8 % (42.8-82.8); PLATELET COUNT 194 10^3/uL (134-434); RBC 3.45 M/mm3 (4.00-5.60); RDW 13.9 % (11.9-15.9); WHITE BLOOD COUNT 12.6 K/mm3 (4.0-10.0)
[2022-03-09 09:28] LABS: CALCIUM 7.9 mg/dL (8.5-10.1)
[2022-03-09 09:29] LABS: BLOOD UREA NITROGEN 30.2 mg/dL (7-18)
[2022-03-09 09:32] LABS: CREATININE 1.7 mg/dL (0.55-1.3)
[2022-03-09] MEDS: CEFTRIAXONE 1 GM in DEXTROSE 5%-WATER - 50 ML IVPB SCH (10:17)
[2022-03-09] MEDS: THIAMINE HCL 100 MG TABLET (FP) PO SCH (11:14)
[2022-03-09] MEDS: levETIRAcetam 500 MG TABLET (FP) PO SCH ×2 (11:14→22:30)
[2022-03-09] MEDS: FUROSEMIDE 40 MG TABLET (FP) PO SCH (11:14)
[2022-03-09] MEDS: PANTOPRAZOLE 40 MG TABLET PO SCH (11:14)
[2022-03-09] MEDS: MAGNESIUM OXIDE 400 MG TABLET (FP) PO SCH (11:15)
[2022-03-09] MEDS: APIXABAN 5 MG TABLET PO SCH ×2 (11:15→22:30)
[2022-03-09] MEDS: AZITHROMYCIN IVPB 500 MG/250 ML BAG IVPB SCH (11:16)
[2022-03-09] MEDS: ACETAMINOPHEN 325 MG TABLET (FP) PO PRN (16:54)
[2022-03-09] MEDS: ATORVASTATIN CA 40 MG TABLET (FP) PO SCH (22:30)
[2022-03-10] MEDS: ACETAMINOPHEN 325 MG TABLET (FP) PO PRN ×2 (02:26→22:12)
[2022-03-10] MEDS: hydrALAZINE HCL 25 MG TABLET (FP) PO SCH ×3 (06:30→22:11)
[2022-03-10] MEDS: MAGNESIUM OXIDE 400 MG TABLET (FP) PO SCH (09:58)
[2022-03-10] MEDS: THIAMINE HCL 100 MG TABLET (FP) PO SCH (09:58)
[2022-03-10] MEDS: PANTOPRAZOLE 40 MG TABLET PO SCH (09:58)
[2022-03-10] MEDS: APIXABAN 5 MG TABLET PO SCH ×2 (09:58→22:11)
[2022-03-10] MEDS: levETIRAcetam 500 MG TABLET (FP) PO SCH ×2 (09:58→22:12)
[2022-03-10] MEDS: FUROSEMIDE 40 MG TABLET (FP) PO SCH (09:59)
[2022-03-10] MEDS: CEFTRIAXONE 1 GM in DEXTROSE 5%-WATER - 50 ML IVPB SCH (09:59)
[2022-03-10] MEDS: AZITHROMYCIN IVPB 500 MG/250 ML BAG IVPB SCH (09:59)
[2022-03-10] MEDS: ATORVASTATIN CA 40 MG TABLET (FP) PO SCH (22:11)
[2022-03-11] MEDS: hydrALAZINE HCL 25 MG TABLET (FP) PO SCH ×3 (05:58→21:21)
[2022-03-11 08:06] LABS: BLOOD UREA NITROGEN 27.7 mg/dL (7-18); CALCIUM 8.2 mg/dL (8.5-10.1)
[2022-03-11 08:09] LABS: CREATININE 1.8 mg/dL (0.55-1.3)
[2022-03-11] MEDS: APIXABAN 5 MG TABLET PO SCH ×2 (09:52→21:21)
[2022-03-11] MEDS: FUROSEMIDE 40 MG TABLET (FP) PO SCH ×2 (09:52→13:36)
[2022-03-11] MEDS: MAGNESIUM OXIDE 400 MG TABLET (FP) PO SCH (09:52)
[2022-03-11] MEDS: PANTOPRAZOLE 40 MG TABLET PO SCH (09:52)
[2022-03-11] MEDS: levETIRAcetam 500 MG TABLET (FP) PO SCH ×2 (09:52→21:21)
[2022-03-11] MEDS: THIAMINE HCL 100 MG TABLET (FP) PO SCH (09:52)
[2022-03-11] MEDS: CEFTRIAXONE 1 GM in DEXTROSE 5%-WATER - 50 ML IVPB SCH (09:53)
[2022-03-11] MEDS: AZITHROMYCIN IVPB 500 MG/250 ML BAG IVPB SCH (09:54)
[2022-03-11] MEDS: ATORVASTATIN CA 40 MG TABLET (FP) PO SCH (21:21)
[2022-03-12] MEDS: FUROSEMIDE 40 MG TABLET (FP) PO SCH ×2 (06:21→14:12)
[2022-03-12] MEDS: hydrALAZINE HCL 25 MG TABLET (FP) PO SCH ×3 (06:21→21:40)
[2022-03-12 08:38] LABS: BASO % 0.9 % (0-2.0); EOS % 4.9 % (0-4.5); HEMATOCRIT 36.1 % (35.4-49); HEMOGLOBIN 12.2 GM/dL (11.7-16.9); LYMPH % 14.5 % (8-40); MCH 32.8 pg (25.7-33.7); MCHC 33.7 g/dl (32.0-35.9); MEAN CELL VOLUME 97.3 fl (80-96); MEAN PLT VOLUME 8.3 fl (7.5-11.1); MONO % 7.6 % (3.8-10.2); NEUT % 72.1 % (42.8-82.8); PLATELET COUNT 267 10^3/uL (134-434); RBC 3.71 M/mm3 (4.00-5.60); WHITE BLOOD COUNT 11.3 K/mm3 (4.0-10.0)
[2022-03-12 09:00] LABS: BLOOD UREA NITROGEN 26.8 mg/dL (7-18); CALCIUM 8.6 mg/dL (8.5-10.1)
[2022-03-12 09:01] LABS: ALBUMIN 2.8 g/dl (3.4-5.0)
[2022-03-12 09:03] LABS: PHOSPHOROUS 3.3 mg/dL (2.5-4.9)
[2022-03-12 09:04] LABS: CREATININE 1.8 mg/dL (0.55-1.3)
[2022-03-12 09:05] LABS: BILIRUBIN,TOTAL 0.5 mg/dL (0.2-1); TOT PROT 7.1 g/dl (6.4-8.2)
[2022-03-12] MEDS: MAGNESIUM OXIDE 400 MG TABLET (FP) PO SCH (10:08)
[2022-03-12] MEDS: APIXABAN 5 MG TABLET PO SCH ×2 (10:08→21:40)
[2022-03-12] MEDS: CEFTRIAXONE 1 GM in DEXTROSE 5%-WATER - 50 ML IVPB SCH (10:08)
[2022-03-12] MEDS: PANTOPRAZOLE 40 MG TABLET PO SCH (10:08)
[2022-03-12] MEDS: THIAMINE HCL 100 MG TABLET (FP) PO SCH (10:08)
[2022-03-12] MEDS: levETIRAcetam 500 MG TABLET (FP) PO SCH ×2 (10:08→21:40)
[2022-03-12] MEDS: AZITHROMYCIN IVPB 500 MG/250 ML BAG IVPB SCH (10:54)
[2022-03-12] MEDS: ACETAMINOPHEN 325 MG TABLET (FP) PO PRN (21:40)
[2022-03-12] MEDS: ATORVASTATIN CA 40 MG TABLET (FP) PO SCH (21:40)
[2022-03-13] MEDS: FUROSEMIDE 40 MG TABLET (FP) PO SCH ×2 (06:36→14:42)
[2022-03-13] MEDS: hydrALAZINE HCL 25 MG TABLET (FP) PO SCH ×3 (06:36→21:22)
[2022-03-13] MEDS: ACETAMINOPHEN 325 MG TABLET (FP) PO PRN ×2 (06:36→21:22)
[2022-03-13 08:49] LABS: BLOOD UREA NITROGEN 30.1 mg/dL (7-18); CALCIUM 8.7 mg/dL (8.5-10.1); MAGNESIUM 2.2 mg/dL (1.8-2.4)
[2022-03-13 08:52] LABS: CREATININE 1.7 mg/dL (0.55-1.3); PHOSPHOROUS 3.1 mg/dL (2.5-4.9)
[2022-03-13] MEDS: THIAMINE HCL 100 MG TABLET (FP) PO SCH (09:57)
[2022-03-13] MEDS: APIXABAN 5 MG TABLET PO SCH ×2 (09:57→21:22)
[2022-03-13] MEDS: PANTOPRAZOLE 40 MG TABLET PO SCH (09:57)
[2022-03-13] MEDS: levETIRAcetam 500 MG TABLET (FP) PO SCH ×2 (09:58→21:22)
[2022-03-13] MEDS: MAGNESIUM OXIDE 400 MG TABLET (FP) PO SCH (09:58)
[2022-03-13] MEDS: ATORVASTATIN CA 40 MG TABLET (FP) PO SCH (21:22)
[2022-03-14] MEDS: FUROSEMIDE 40 MG TABLET (FP) PO SCH ×2 (05:23→13:40)
[2022-03-14] MEDS: hydrALAZINE HCL 25 MG TABLET (FP) PO SCH ×2 (05:23→13:39)
[2022-03-14] MEDS: ACETAMINOPHEN 325 MG TABLET (FP) PO PRN (05:24)
[2022-03-14] MEDS: APIXABAN 5 MG TABLET PO SCH (10:32)
[2022-03-14] MEDS: PANTOPRAZOLE 40 MG TABLET PO SCH (10:32)
[2022-03-14] MEDS: levETIRAcetam 500 MG TABLET (FP) PO SCH (10:32)
[2022-03-14] MEDS: MAGNESIUM OXIDE 400 MG TABLET (FP) PO SCH (10:32)
[2022-03-14] MEDS: THIAMINE HCL 100 MG TABLET (FP) PO SCH (10:33)
[2022-03-14 15:33] VITALS: BP 142/85; PULSE 77; RESP 19; TEMP 98
== END 2022-03-14 18:45 | disposition home or self-care (01) | DRG 101 ==
LOC: JER 12:54 → JERBED 14:41 → J4S 03-06 11:34 → J6S 03-07 16:22 → J4S 03-07 17:01
PROVIDERS: ADMIT Internal Medicine; ATTEND Internal Medicine
DX: G40.911 Epilepsy, unspecified, intractable, with status epilepticus (principal); I13.0 Hypertensive heart and chronic kidney disease with heart failure and stage 1 through stage 4 chronic kidney disease, or unspecified chronic kidney disease; E87.0 Hyperosmolality and hypernatremia; I50.32 Chronic diastolic (congestive) heart failure; I47.1 Supraventricular tachycardia; N39.0 Urinary tract infection, site not specified; Z79.01 Long term (current) use of anticoagulants; N18.32 Chronic kidney disease, stage 3b; D72.829 Elevated white blood cell count, unspecified; Z20.822 Contact with and (suspected) exposure to COVID-19; S92.302A Fracture of unspecified metatarsal bone(s), left foot, initial encounter for closed fracture; W18.30XA Fall on same level, unspecified, initial encounter; Y93.89 Activity, other specified; Y92.89 Other specified places as the place of occurrence of the external cause; Y99.8 Other external cause status
CPT/HCPCS: 36415; 70450-TC; 71046-TC-FY; 72125-TC; 73610-TC-LT-FY; 73630-TC-LT; 80048; 80053; 80177; 81003; 82962; 83036; 83735; 84100; 84156; 84484; 85025; 85610; 86850; 86900; 86901; 87086; 87186; 93005; 93010; 93971-TC; 97116-GP; 97162-GP; 99285-25; C9803-CS; U0003; U0005